=== PATIENT | female | born 1980 | race American Indian/Alaskan Native ===

== ENCOUNTER 2016-12-12 05:53 | Outpatient (CLI) | payer SELFPAY ==
[2016-12-12] MEDS ORDERED: LACTATED RINGERS 500 ML IV ONE (06:22)
[2016-12-12 07:14] VITALS: BP 114/55
--- NOTE | 2016-12-12 07:33 | Ultrasound Report ---
BIOPHYSICAL PROFILE: History: No care, abdominal pain and . Technique: Transabdominal ultrasound with Doppler interrogation. 2 - breathing movements 2 - movements 2 - posture and tone 2 - Qualitative amniotic fluid volume 8 - TOTAL SCORE OF POSSIBLE 8 Heart Rate (bpm) 139
--- NOTE | 2016-12-12 10:27 | Ultrasound Report ---
OB ULTRASOUND: HISTORY: No care. Abdominal pain after fall. TECHNIQUE: Transabdominal ultrasound with Doppler interrogation. Gestation: moragn Position: breech Amniotic Fluid: WNL (7-24 cm) GISSELLE = 17.9 cm Placenta: Lt. lateral Placental Grade: I Heart Rate: 143 BPM Cervical length: 3.1 cm (Normal > 3 cm) NEUROANATOMY VISUALIZED: Choroid Plexus ANATOMY VISUALIZED: Stomach Kidneys Bladder Diaphragm 4 Chamber Heart Heart 3 Vessel Cord SPINE VISUALIZED: Limited spine due to position BPD: 8.6 cm = 34 w 4 d HC: 30.7 cm = 34 w 2 d AC: 28.9 cm = 33 w 0 d FL: 7.2 cm = 36 w 5 d HC/AC Ratio: 1.06 Cephalic Index: 82.5 Estimated Weight: 2405 grams Clinical age = 34 w 6 d EDC: 01-17-17 [place] Gest. Age = 34 w 5 d EDC: 01-18-17 COMMENT: No evidence for abruption.
== END 2016-12-12 08:20 | disposition home or self-care (01) ==
LOC: TRG 05:53
PROVIDERS: ATTEND Obstetrics & Gynecology Gynecology
DX: O26.893 Other specified pregnancy related conditions, third trimester (principal); O32.1XX0 Maternal care for breech presentation, not applicable or unspecified; O09.513 Supervision of elderly primigravida, third trimester; O47.03 False labor before 37 completed weeks of gestation, third trimester; R10.9 Unspecified abdominal pain; Z91.81 History of falling; Z3A.35 35 weeks gestation of pregnancy
CPT/HCPCS: 59025; 76805; 76819; J7120